=== PATIENT | female | born 1985 | race Caucasian/White ===

== ENCOUNTER → 2019-07-10 | Outpatient (CLI) | payer OTHER ==
[~2019-07-10] MED LIST: ALBU90OI INH; AMOX500 PO; ARIP10 PO; CITA20 PO; DULO30; HYDACE5 PO; HYDACE5325 PO; LAMO100; Macrobid 100 M100 MG PO; Motrin600 MG PO; NAPR550 PO; PRED10 PO; PROC10 PO; Prednisone20 MG PO; Seroquel Xr50 MG
== END | disposition home or self-care (01) ==
LOC: PLD 08:18 → LAB SHORT 08:18
DX: D22.62 Melanocytic nevi of left upper limb, including shoulder (principal)
CPT/HCPCS: 88305

== ENCOUNTER 2019-07-25 09:40 | Day surgery (SDC) | payer OTHER ==
[~2019-07-25] VITALS: Ht 154.9 cm; Wt 68.7 kg
[~2019-07-25 09:40] MED LIST changes: -ARIP10 PO; -LAMO100; -Seroquel Xr50 MG
[2019-07-25] MEDS ORDERED: ARIP10 PO (09:58)
[2019-07-25] MEDS ORDERED: Seroquel Xr50 MG (09:58)
[2019-07-25] MEDS ORDERED: LAMO100 (09:59)
== END 2019-07-25 10:48 | disposition home or self-care (01) ==
LOC: ORSCSDS 09:40
PROVIDERS: Internal Medicine Gastroenterology
PROC: 0DB68ZX Excision of Stomach, Via Natural or Artificial Opening Endoscopic, Diagnostic (ICD-10-PCS; principal; 2019-07-25 11:00)
PROC: 0DB98ZX Excision of Duodenum, Via Natural or Artificial Opening Endoscopic, Diagnostic (ICD-10-PCS; principal; 2019-07-25 11:00)
DX: R10.11 Right upper quadrant pain (principal); R19.7 Diarrhea, unspecified; R63.4 Abnormal weight loss; J45.909 Unspecified asthma, uncomplicated; F41.9 Anxiety disorder, unspecified; Z87.891 Personal history of nicotine dependence; F43.10 Post-traumatic stress disorder, unspecified; Z79.899 Other long term (current) drug therapy
CPT/HCPCS: 88305; 88342; J2250; J2704; J7120

== ENCOUNTER → 2022-06-17 | Outpatient (CLI) | payer OTHER, SELFPAY ==
[~2022-06-17] MED LIST changes: +ARIP10 PO; +LAMO100; +Seroquel Xr50 MG
[2022-06-17 17:31] LABS: Source, Urine Clean Catch
[2022-06-17 17:46] LABS: Appearance, Urine Clear (Clear); Bilirubin, Urine Neg (Neg); Blood, Urine Neg (Neg); Glucose Qualitative, Urine Neg (Neg); Ketones, Urine Neg (Neg); Leukocyte Esterase, Urine Neg (Neg); Nitrite, Urine Neg (Neg); Protein, Urine Neg (Neg); Urobilinogen, Urine NORM (Normal)
[2022-06-17 17:54] LABS: Color, Urine No Color (P-Yellow)
== END | disposition home or self-care (01) ==
LOC: LAB SHORT 11:10
PROVIDERS: Registered Nurse
DX: R30.0 Dysuria (principal)
CPT/HCPCS: 81003

== ENCOUNTER → 2022-06-17 | Outpatient (CLI) | payer OTHER, SELFPAY ==
[2022-06-18 10:24] LABS: Candida species (DNA Probe) Negative (NEGATIVE); G. vaginalis (DNA Probe) Positive (NEGATIVE); T. vaginalis (DNA Probe) Negative (NEGATIVE)
== END | disposition home or self-care (01) ==
LOC: LAB SHORT 11:10
PROVIDERS: Registered Nurse
DX: N89.8 Other specified noninflammatory disorders of vagina (principal)
CPT/HCPCS: 87480; 87510; 87660

== ENCOUNTER → 2022-08-24 | Outpatient (CLI) | payer OTHER ==
[2022-08-25 10:37] LABS: Candida species (DNA Probe) Negative (NEGATIVE); G. vaginalis (DNA Probe) Negative (NEGATIVE); T. vaginalis (DNA Probe) Negative (NEGATIVE)
[2022-08-27 01:11] LABS: CHLAMYDIA TRACHOMATIS, NAA Negative (Negative)
== END | disposition home or self-care (01) ==
LOC: LAB 18:17 → LAB SHORT 18:17
PROVIDERS: Physician Assistant Medical
DX: N92.0 Excessive and frequent menstruation with regular cycle (principal)
CPT/HCPCS: 87480; 87491; 87510; 87591; 87660

== ENCOUNTER → 2023-03-10 | Outpatient (CLI) | payer OTHER | LOC: LAB 09:00 → LAB SHORT 09:00 | DX: R30.0 Dysuria (principal) | CPT/HCPCS: 87077; 87086; 87186 ==

== ENCOUNTER → 2024-03-31 | Outpatient (CLI) | payer OTHER ==
[2024-04-14 08:00] LABS: HPV HIGH RISK BY TMA Not Detected; HPV SOURCE Cervical
== END ==
LOC: LAB 11:06 → LAB SHORT 11:06
PROVIDERS: Family Medicine
DX: Z01.419 Encounter for gynecological examination (general) (routine) without abnormal findings (principal)
CPT/HCPCS: 87624; G0123